=== PATIENT | male | born 1960 | race Caucasian/White ===

== ENCOUNTER 2024-12-25 20:43 | Inpatient (IN) | payer OTHER, SELFPAY ==
[2024-12-25 21:33] VITALS: BP 174/75; PULSE 94; RESP 16; TEMP 36.4; O2SAT 97; BMI 39.6
--- NOTE | 2024-12-26 05:15 | PC.ADMIT ---
Garcia Nguyen, 64years old male with PMH of CAD, CHF, HTN, DM2, CKD, PVD, chronic LLE edema/pain, AUD and bipolar d/o, presented to [facility] via EMS from outside [facility] for evaluation after repeated fall and making SI statements. pt reported he was at an OSH for the past few days, presenting with CP and they took some fluids off my legs and let me go .pt stated he left the hospital at 4pm, met with some friends, drank alcohol, unsure amnt, and had x2 witnessed falls by his friends. pt also reported increased depression as he's recently homeless and kicked out of his sister's house. Pt reported being suicidal with a plan to cut his wrist and had past suicide attempts on OD on his Gabapentin. pt has a number of medical problems related him being diabetic, he has partial amputation of bilateral feet, stumps intact. He's non-complaint with his meds and is now struggling with alcoholism and Bipolar d/o. Pt arrived to [place] [id number] at 20:55 with admitting diagnosis for Unspecified Bipolar d/o and AUD. pt is alert and oriented x4, signed CV. pt is calm and pleasant, cooperative with admission process, displayed a depressed mood and affect is labile. pt reported moderate anxiety and depression, 6/10, denied SI/HI/AVH. pt contracted for safety, pt reports he uses walker and cane at home to get around, due to his partial bilateral amputation, he has a shuffle gait, and was given a walker for safety. pt denied pain, skin check completed, pt with a skin on his right knee from the fall, he has an allyevyn drsg on it. Pt also has old healing wound and scattered scabs of his bilateral foot.VSS unremarkable. Med rec. completed, provider notified.Pt on 5mins for safety check. pt is allergic to Motrin. pt's belongs inventoried/secured. Hospitalist consulted for medical clearance.
[2024-12-26 07:00] LABS: Glucose, Whole Blood 167 mg/dL (60-115)
--- NOTE | 2024-12-26 07:17 | HO.PSYADMNOT ---
HPI Date of Service: 12/26/24 Chief Complaint: SI Sources of Information: patient interviewed and chart reviewed HPI Subjective Notes: Kim Warning, Conditional Voluntary and 3 Day Narrative: As per nursing admission 12/26/24: 64years old male with PMH of CAD, CHF, HTN, DM2, CKD, PVD, chronic LLE edema/pain, AUD and bipolar d/o, presented to [facility] via EMS from outside [facility] for evaluation after repeated fall and making SI statements. pt reported he was at an OSH for the past few days, presenting with CP and they took some fluids off my legs and let me go .pt stated he left the hospital at 4pm, met with some friends, drank alcohol, unsure amnt, and had x2 witnessed falls by his friends. pt also reported increased depression as he's recently homeless and kicked out of his sister's house. Pt reported being suicidal with a plan to cut his wrist and had past suicide attempts on OD on his Gabapentin. pt has a number of medical problems related him being diabetic, he has partial amputation of bilateral feet, stumps intact. He's non-complaint with his meds and is now struggling with alcoholism and Bipolar d/o. Pt arrived to [place] [id number] at 20:55 with admitting diagnosis for Unspecified Bipolar d/o and AUD. pt is alert and oriented x4, signed CV. pt is calm and pleasant, cooperative with admission process, displayed a depressed mood and affect is labile. pt reported moderate anxiety and depression, 6/10, denied SI/HI/AVH. pt contracted for safety, pt reports he uses walker and cane at home to get around, due to his partial bilateral amputation, he has a shuffle gait, and was given a walker for safety. pt denied pain, skin check completed, pt with a skin on his right knee from the fall, he has an allyevyn drsg on it. Pt also has old healing wound and scattered scabs of his bilateral foot.VSS unremarkable. Med rec. completed, provider notified.Pt on 5mins for safety check. pt is allergic to Motrin. pt's belongs inventoried/secured. Hospitalist consulted for medical clearance. Today: With blog writer presents as irritable. Reports he is not depressed or suicidal. Stated he made comments when he was intoxicated and did not mean them. That being said did endorse a recent admission following a gabapentin overdose in October in [place]. Reports he has no interest in psychiatric services or medications as he does not take them consistently . Adamantly denied being depressed, psychosis, sleep disturbance. Regarding alcohol is very vague around the amount that he drinks and frequency too much , whenever I have the money . Reported not going for more than a few days at a time without drinking, but unsure how much each time. He does come across as a little concrete. Stated that he has no history of DTs or withdrawal seizures. Main stressor are living situation has relocated from [place] to [place] in September and stayed with his sister but that lasted less than 1 week and reports it was a legal incident and he has court date on 01/21/2025 for a battery charge and is currently wearing an ankle monitor. Does have some stress as the pin attacher for this is at the skilled nursing he was most recently at in [place]. Reports his main goal is discharge when his 3 day notice expires and gets his ankle monitor requirement taken away, so he can go to [facility] . Did submitted 3 day notice and Kim warning reviewed. Past Psychiatric History: Reported diagnosis of bipolar disorder. That being said no clear episodes of major depressive episode or manic episode. Denies history of psychosis. Also note that patient is very vague hand minimally engaged with history. Transfer paperwork showed amitriptyline, fluoxetine and Depakote. Does not have any providers and reports he does not want any providers upon discharge. Medical Evaluation Reviewed: Hospitalist Jun Pending Transfer paperwork and labs noted BUN and creatinine elevated. BAL 179. Patient does have a well-established history of diabetes with associated toe amputations. Also has a history of renal impairment. [facility] Social History: originally from [place]. Was living in [place] up until September and came back to [place]. Stayed with his sister but this lasted less than 1 week and there was a legal incident and patient has a court date on 01/21/2025 for a related battery charge and also has an ankle monitor as part of his requirements. [employer] grade education. SSDI support. Substance History: Alcohol use disorder Diagnostics Vital Signs (24Hr): Vital Signs - 24 hr 12/25/24 21:33 Temperature 97.5 F Pulse Rate 94 Respiratory Rate 16 Blood Pressure 174/75 H Pulse Oximetry 97 Oxygen Delivery Method Room Air BMI result Body Mass Index 39.6 Labs 12/26/24 08:16 Labs: Laboratory Results - last 48 hr 12/26/24 06:37 POC Glucose 167 H Meds/Allergies Meds Home Medications ?Medication ?Instructions ?Recorded ?Confirmed ?Type amitriptyline 25 mg PO BEDTIME 12/25/24 12/25/24 History aspirin 81 mg PO DIRECTED 12/25/24 12/25/24 History atorvastatin 40 mg PO DAILY 12/25/24 12/25/24 History bumetanide 0.5 mg PO DAILY 12/25/24 12/25/24 History clopidogrel 75 mg PO DAILY 12/25/24 12/25/24 History divalproex 750 mg PO BID 12/25/24 12/25/24 History empagliflozin 10 mg PO DAILY 12/25/24 12/25/24 History fluoxetine 20 mg PO DAILY 12/25/24 12/25/24 History insulin glargine 20 units subcut BEDTIME 12/25/24 12/25/24 History isosorbide mononitrate 30 mg PO DAILY 12/25/24 12/25/24 History Allergies Allergies Allergy/AdvReac Type Severity Reaction Status Date / Time ibuprofen (From Motrin) Allergy Abdominal Verified 12/25/24 21:30 Pain Mental Status Exam Mental Status Exam Narrative: in bed. Hospital clothing. Poor self-care. Vague and guarded, but largely pleasant. Also appeared concrete. Is alert and oriented to place, date and recent circumstances. Denied depression. Denied SI. No HI. No psychosis. Insight and judgment is limited regarding recent circumstances Assessment & Plan Assessment & Plan (1) Mood disorder: Status: Acute Code(s): F39 - Unspecified mood [affective] disorder (2) Alcohol use disorder: Status: Acute Code(s): F10.90 - Alcohol use, unspecified, uncomplicated (3) Diabetes: Status: Acute Code(s): E11.9 - Type 2 diabetes mellitus without complications (4) Renal impairment: Status: Acute Code(s): N28.9 - Disorder of kidney and ureter, unspecified Plan 64-year-old male admitted for evaluation of mood disorder, alcohol use disorder and suicidal statements in the context of psychosocial stressors and alcohol use. Main stressors include being on house, difficulty connecting with healthcare impacting overall medical well-being. There is a report of bipolar disorder, however unclear if patient has established major depressive or manic or hypomanic episodes in the past. No evidence of psychosis. Alcohol use disorder and reports not going for more than a few days at a time without drinking. Denies any history of DTs or seizures. Admit on a voluntary status with 3 day notice and Kim warning discussed. Continue meds as per transfer paperwork including Depakote 750 mg twice daily, Prozac 20 mg daily, amitriptyline 25 mg at bedtime. Also continue medical medications as per transfer paperwork and will follow hospitalist recommendations as part of H and P and direct admission evaluation. Patient educated on: medication risk/benefits and substance abuse Informed Consent: further education needed Reason for continued inpatient stay Substantial Risk for: harm to self and inability to function Statement Statement: I have reviewed the history and physical and performed a pertinent examination on my patient. No changes have occurred unless specified. If the History and Physical was not performed prior to admission, the Hospitalist's service will be consulted for completing the admission physical. Time Spent With Patient Time: Total time managing care of this patient today ____ minutes.
[2024-12-26 08:39] VITALS: BP 152/67; PULSE 72; RESP 16; TEMP 36.9; O2SAT 98
[2024-12-26 08:42] LABS: Hemoglobin A1C 155.6959 umol/L; Total Hemoglobin (HGBA1C) 2192.8534 umol/L
[2024-12-26 09:07] LABS: Alanine Aminotransferase 9 U/L (0-40); Albumin Level 3.2 g/dL (3.5-5.0); Alkaline Phosphatase 95 U/L (39-117); Anion Gap 14 (12-20); Aspartate Amino Transferase 30 U/L (5-37); Blood Urea Nitrogen 25 mg/dL (9-16); Calcium 8.8 mg/dL (8.4-10.2); Carbon Dioxide 29 mmol/L (22-29); Chloride 102 mmol/L (96-108); Cholesterol 152 mg/dL (<200); Creatinine Clr Calc Pharmacy 57.1; Estimated Glomerular Filt Rate 47; HDL Cholesterol 36 mg/dL (>40); Potassium 4.6 mmol/L (3.3-5.1); Sodium 140 mmol/L (135-145); Total Protein 6.5 g/dL (6.5-8.0); Triglycerides 154 mg/dL (<150)
[2024-12-26 09:22] LABS: Free T4 (Free Thyroxine) 0.77 ng/dL (0.71-1.85); Thyroid Stimulating Hormone 2.58 uIU/mL (0.32-4.0)
[2024-12-26 09:36] LABS: Folate 10.1 ng/mL (> or = 4.0); Vitamin B12 443 pg/mL (200-900)
[2024-12-26 09:42] VITALS: BP 152/67
[2024-12-26 11:35] LABS: Glucose, Whole Blood 251 mg/dL (60-115)
--- NOTE | 2024-12-26 15:13 | HO.PM.IMCN ---
History of Present Illness Data of Consult Service Date: 12/26/24 Primary Care Provider: None Physician HPI Reason for consult: Medical admission HPI Pt is a 64-year-old male with a PMH significant for?CAD, PVD, CHF, insulin dependent diabetes, HTN, CKD, chronic lower extremity edema/pain, AUD, and bipolar disorder who is admitted to [facility] for increasing depression and SI. Pt initially presented to [facility] ED from [place] [facility] due to recurrent falls in the community in the setting of AUD. While in the ED pt made SI comments with plan to cut his writst. Medical consult for admission H&P. ?Pt is overall a poor historian. Initially denies any significant PMH though eventually admits he takes insulin and had a couple of heart attacks some time in the past. Denies any acute medical complaints. Pt is perseveratig on his ankle bracelet and his need for a sales representative adding machines otherwise they will arrest me and send me back to [facility] . In regards to his SI comments, pt states he was drunk and just saying things he didn't mean. However, during interview and exam pt states that if he cannot find a sales representative adding machines for his ankle bracelet, he wishes he would just and may have to kill himself. Pt has no acute medical complaints. Review of Systems Review of Systems: Yes all other systems are reviewed and are negative and Unobtainable due to mental condition PMFSH Social History Housing: Homeless Patient Tobacco Use Status: Former Tobacco user Currently Displaying Signs/Symptoms of Drug Intoxication Withdrawal: No Advance Directives: No Advance Directives Information Provided: No Do you have thoughts of harming others: None Do you have a plan to hurt others: No Plan Recently lost weight without trying: Yes How much weight loss: 34pounds or more Nutrition Risks: No Nutritional Risk service: No Sexual orientation: Straight/Heterosexual Meds Allergies Allergy/AdvReac Type Severity Reaction Status Date / Time ibuprofen (From Motrin) Allergy Abdominal Verified 12/25/24 21:30 Pain Active Medications: Current Medications Acetaminophen (Acetaminophen 325 Mg Tablet) 650 mg PO Q6H PRN PRN Reason: Headache/Pain, Scale 1-10 Al Hydroxide/Mg Hydroxide (Magnesium Hydrox/Alum Hydrox 30 Ml Oral.Susp) 30 ml PO Q6H PRN PRN Reason: Heartburn/Nausea Amitriptyline HCl (Amitriptyline Hcl 25 Mg Tablet) 25 mg PO BEDTIME [facility] Aspirin (Aspirin 81 Mg Tab.Chew) 81 mg PO DAILY [facility] Last Admin: 12/26/24 09:41 Dose: 81 mg Atorvastatin Calcium (Atorvastatin Calcium 40 Mg Tablet) 40 mg PO DAILY [facility] Last Admin: 12/26/24 09:42 Dose: 40 mg Bumetanide (Bumetanide 1 Mg Tablet) 0.5 mg PO DAILY [facility] Last Admin: 12/26/24 09:42 Dose: 0.5 mg Clopidogrel Bisulfate (Clopidogrel Bisulfate 75 Mg Tablet) 75 mg PO DAILY [facility] Last Admin: 12/26/24 09:41 Dose: 75 mg Dextrose (Dextrose 50 % 25 Gm/50 Ml Syringe) 25 gm IVPUSH Q15M PRN; Protocol PRN Reason: per Hypoglycemia Standing Ord. Divalproex Sodium (Divalproex Sodium 250 Mg Tablet.Dr) 750 mg PO BID [facility] Last Admin: 12/26/24 09:41 Dose: 750 mg Empagliflozin (Empagliflozin 10 Mg Tablet) 10 mg PO DAILY [facility] Last Admin: 12/26/24 09:42 Dose: 10 mg Fluoxetine HCl (Fluoxetine Hcl 20 Mg Capsule) 20 mg PO DAILY [facility] Last Admin: 12/26/24 09:42 Dose: 20 mg Glucose (Glucose Gel 15 Gm Gel..Gram.) 15 gm PO Q15M PRN; Protocol PRN Reason: per Hypoglycemia Standing Ord. Hydroxyzine HCl (Hydroxyzine Hcl 25 Mg Tablet) 25 mg PO Q6H PRN PRN Reason: mild anxiety Insulin Glargine (Insulin Glargine,Hum.Rec.Anlog 100 Unit/Ml 10 Ml Vial) 20 unit SUBCUT BEDTIME [facility] Insulin Human Lispro (Insulin Lispro 100 Unit/Ml 3 Ml Vial) 0 unit SUBCUT QIDACHS [facility]; Protocol Last Admin: 12/26/24 11:49 Dose: 6 unit Isosorbide Mononitrate (Isosorbide Mononitrate 30 Mg Tab.Er.24h) 30 mg PO DAILY [facility] Last Admin: 12/26/24 09:42 Dose: 30 mg Lorazepam (Lorazepam 1 Mg Tablet) 1 mg PO Q2H PRN PRN Reason: CIWA 8-11 Lorazepam (Lorazepam 1 Mg Tablet) 2 mg PO Q2H PRN PRN Reason: CIWA 12-15 Magnesium Hydroxide (Milk Of Magnesia 30 Ml Oral.Susp) 30 ml PO DAILY PRN PRN Reason: Constipation Nicotine (Nicotine 21 Mg Patch.Td24) 21 mg TRANSDERMA DAILY PRN PRN Reason: nicotine craving Nicotine Polacrilex (Nicotine Polacrilex 2 Mg Gum) 2 mg BUCCAL Q2H PRN PRN Reason: Nicotine Cravings Olanzapine (Olanzapine 5 Mg Tablet) 5 mg PO BID PRN PRN Reason: agitation Thiamine HCl (Thiamine Hcl 100 Mg Tablet) 100 mg PO DAILY [facility] Last Admin: 12/26/24 09:42 Dose: 100 mg Trazodone HCl (Trazodone Hcl 50 Mg Tablet) 50 mg PO BEDTIME MRX1 PRN PRN Reason: Insomnia Home Medications ?Medication ?Instructions ?Recorded ?Confirmed ?Last Taken ?Type amitriptyline 25 mg PO BEDTIME 12/25/24 12/25/24 Unknown History aspirin 81 mg PO DIRECTED 12/25/24 12/25/24 Unknown History atorvastatin 40 mg PO DAILY 12/25/24 12/25/24 Unknown History bumetanide 0.5 mg PO DAILY 12/25/24 12/25/24 Unknown History clopidogrel 75 mg PO DAILY 12/25/24 12/25/24 Unknown History divalproex 750 mg PO BID 12/25/24 12/25/24 Unknown History empagliflozin 10 mg PO DAILY 12/25/24 12/25/24 Unknown History fluoxetine 20 mg PO DAILY 12/25/24 12/25/24 Unknown History insulin glargine 20 units subcut BEDTIME 12/25/24 12/25/24 Unknown History isosorbide mononitrate 30 mg PO DAILY 12/25/24 12/25/24 Unknown History Physical Exam Vital Signs and Narrative: Vital Signs: Last Vital Signs Temp 98.5 F 12/26/24 08:39 Pulse 72 12/26/24 08:39 Resp 16 12/26/24 08:39 BP 152/67 H 12/26/24 09:42 Pulse Ox 98 12/26/24 08:39 O2 Del Method Room Air 12/26/24 08:39 BMI result Body Mass Index 39.6 General: AOx3, no acute distress Resp: CTA bilaterally CVS: S1, S2, RRR GI: +BS, NT, no distention Skin: Warm, dry Neuro: Cranial nerves II-XII grossly intact bilaterally. Motor grossly intact bilaterally Extremities:Chronic 1+ lower extremity pitting edema; bilateral TMAs; superficial 2cm abrasion on left wrist where he attempted to cut self with juice box Psych: Appropriate affect Results Labs 12/26/24 08:16 Labs: Laboratory Results - last 24 hr 12/26/24 12/26/24 12/26/24 06:37 08:16 11:31 Anion Gap 14 Estim Creat Clear Calc 57.1 Estimated GFR 47 POC Glucose 167 H 251 H Random Glucose 243 H Estimat Average Glucose 200 Hemoglobin A1c % 8.6 H Calcium 8.8 Total Bilirubin 0.3 AST 30 ALT 9 Alkaline Phosphatase 95 Total Protein 6.5 Albumin 3.2 L Triglycerides 154 H Cholesterol 152 LDL Cholesterol, Calc 86 HDL Cholesterol 36 L Vitamin B12 443 Folate 10.1 TSH 2.58 Free T4 0.77 Assessment and Plan (1) Medical clearance for psychiatric admission: Status: Acute Plan Pt is a 64-year-old male with a PMH significant for?CAD, PVD, CHF, insulin dependent diabetes, HTN, CKD, chronic lower extremity edema/pain, AUD, and bipolar disorder who is admitted to [facility] for increasing depression and SI. Pt initially presented to [facility] ED from [place] [facility] due to recurrent falls in the community in the setting of AUD. While in the ED pt made SI comments with plan to cut his wrist. Medical consult for admission H&P. ? Mood disorder Plan as per psychiatry CAD/PVD/HLD Continue Plavix, aspirin, and statin Continue isosorbide mononitrate Chronic lower extremity edema Continue bumetanide Insulin-dependent type 2 diabetes Continue Lantus Sliding scale insulin Encouraged diabetic diet and diabetic snacking HTN Overall well controlled Currently not on home meds Thank you for allowing us to participate in the care of this pt. Currently appears stable and has no acute medical complaints. Will sign off for now.
[2024-12-26 16:26] LABS: Glucose, Whole Blood 166 mg/dL (60-115)
[2024-12-26 20:00] VITALS: BP 118/55; RESP 17; TEMP 36.6; O2SAT 97
[2024-12-26 20:25] LABS: Glucose, Whole Blood 190 mg/dL (60-115)
[2024-12-26] MEDS: Insulin Glargine,Hum.rec.anlog 100 UNIT/ML 10 ML VIAL 20 UNIT SUBCUT (21:12)
[2024-12-27 07:06] LABS: Glucose, Whole Blood 143 mg/dL (60-115)
--- NOTE | 2024-12-27 07:56 | P.PNPSI_ITS ---
Subjective Subjective Date of Service: 12/27/24 Reason For Visit: SI Subjective Notes: Kim Warning and 3 Day Interim History: Met with patient. Discussed with nursing. Overall reports things are going okay follow-up mental health perspective. Remains eager for discharge with three-day notice in place. Reports he is not depressed or suicidal. We told his perspective of saying things while intoxicated. Focused on getting back to his residential and ensuring that his ankle bracelet monitor discharged. No med concerns. Sleep energy and appetite fair. Doing art work/coloring in as a distraction Medication Compliance: Yes Side effects from medications: No Attending Groups: Intermittent Review of Systems Acute medical concerns: No Review of Systems Review of Systems in milieu. Wearing hospital clothing. Fair self-care. Hubbard but pleasant. Denies depression SI HI or psychosis. Doing artwork and coloring in. Insight and judgment improving Diagnostics Vital Signs (24Hr): Vital Signs - 24 hr 12/26/24 08:39 12/26/24 09:42 12/26/24 09:42 Temperature 98.5 F Pulse Rate 72 Respiratory Rate 16 Blood Pressure 152/67 H 152/67 H 152/67 H Pulse Oximetry 98 Oxygen Delivery Method Room Air 12/26/24 20:00 Temperature 98 F Pulse Rate Respiratory Rate 17 Blood Pressure 118/55 L Pulse Oximetry 97 Oxygen Delivery Method Room Air BMI result Body Mass Index 39.6 Labs 12/26/24 08:16 Labs: Laboratory Results - last 48 hr 12/26/24 12/26/24 12/26/24 06:37 08:16 11:31 Sodium 140 Potassium 4.6 Chloride 102 Carbon Dioxide 29 Anion Gap 14 BUN 25 H Creatinine 1.51 H Estim Creat Clear Calc 57.1 Estimated GFR 47 POC Glucose 167 H 251 H Random Glucose 243 H Estimat Average Glucose 200 Hemoglobin A1c % 8.6 H Calcium 8.8 Total Bilirubin 0.3 AST 30 ALT 9 Alkaline Phosphatase 95 Total Protein 6.5 Albumin 3.2 L Triglycerides 154 H Cholesterol 152 LDL Cholesterol, Calc 86 HDL Cholesterol 36 L Vitamin B12 443 Folate 10.1 TSH 2.58 Free T4 0.77 12/26/24 12/26/24 12/27/24 16:22 20:21 06:59 Sodium Potassium Chloride Carbon Dioxide Anion Gap BUN Creatinine Estim Creat Clear Calc Estimated GFR POC Glucose 166 H 190 H 143 H Random Glucose Estimat Average Glucose Hemoglobin A1c % Calcium Total Bilirubin AST ALT Alkaline Phosphatase Total Protein Albumin Triglycerides Cholesterol LDL Cholesterol, Calc HDL Cholesterol Vitamin B12 Folate TSH Free T4 Medications Medications Current Medications Acetaminophen (Acetaminophen 325 Mg Tablet) 650 mg PO Q6H PRN PRN Reason: Headache/Pain, Scale 1-10 Last Admin: 12/27/24 04:22 Dose: 650 mg Al Hydroxide/Mg Hydroxide (Magnesium Hydrox/Alum Hydrox 30 Ml Oral.Susp) 30 ml PO Q6H PRN PRN Reason: Heartburn/Nausea Amitriptyline HCl (Amitriptyline Hcl 25 Mg Tablet) 25 mg PO BEDTIME [facility] Last Admin: 12/26/24 21:14 Dose: 25 mg Aspirin (Aspirin 81 Mg Tab.Chew) 81 mg PO DAILY [facility] Last Admin: 12/26/24 09:41 Dose: 81 mg Atorvastatin Calcium (Atorvastatin Calcium 40 Mg Tablet) 40 mg PO DAILY [facility] Last Admin: 12/26/24 09:42 Dose: 40 mg Bumetanide (Bumetanide 1 Mg Tablet) 0.5 mg PO DAILY [facility] Last Admin: 12/26/24 09:42 Dose: 0.5 mg Clopidogrel Bisulfate (Clopidogrel Bisulfate 75 Mg Tablet) 75 mg PO DAILY [facility] Last Admin: 12/26/24 09:41 Dose: 75 mg Dextrose (Dextrose 50 % 25 Gm/50 Ml Syringe) 25 gm IVPUSH Q15M PRN; Protocol PRN Reason: per Hypoglycemia Standing Ord. Divalproex Sodium (Divalproex Sodium 250 Mg Tablet.Dr) 750 mg PO BID [facility] Last Admin: 12/26/24 21:13 Dose: 750 mg Empagliflozin (Empagliflozin 10 Mg Tablet) 10 mg PO DAILY [facility] Last Admin: 12/26/24 09:42 Dose: 10 mg Fluoxetine HCl (Fluoxetine Hcl 20 Mg Capsule) 20 mg PO DAILY [facility] Last Admin: 12/26/24 09:42 Dose: 20 mg Glucose (Glucose Gel 15 Gm Gel..Gram.) 15 gm PO Q15M PRN; Protocol PRN Reason: per Hypoglycemia Standing Ord. Hydroxyzine HCl (Hydroxyzine Hcl 25 Mg Tablet) 25 mg PO Q6H PRN PRN Reason: mild anxiety Last Admin: 12/26/24 22:24 Dose: 25 mg Insulin Glargine (Insulin Glargine,Hum.Rec.Anlog 100 Unit/Ml 10 Ml Vial) 20 unit SUBCUT BEDTIME [facility] Last Admin: 12/26/24 21:12 Dose: 20 unit Insulin Human Lispro (Insulin Lispro 100 Unit/Ml 3 Ml Vial) 0 unit SUBCUT QIDACHS [facility]; Protocol Last Admin: 12/27/24 07:32 Dose: Not Given Isosorbide Mononitrate (Isosorbide Mononitrate 30 Mg Tab.Er.24h) 30 mg PO DAILY [facility] Last Admin: 12/26/24 09:42 Dose: 30 mg Lorazepam (Lorazepam 1 Mg Tablet) 1 mg PO Q2H PRN PRN Reason: CIWA 8-11 Last Admin: 12/27/24 04:25 Dose: 1 mg Lorazepam (Lorazepam 1 Mg Tablet) 2 mg PO Q2H PRN PRN Reason: CIWA 12-15 Magnesium Hydroxide (Milk Of Magnesia 30 Ml Oral.Susp) 30 ml PO DAILY PRN PRN Reason: Constipation Nicotine (Nicotine 21 Mg Patch.Td24) 21 mg TRANSDERMA DAILY PRN PRN Reason: nicotine craving Nicotine Polacrilex (Nicotine Polacrilex 2 Mg Gum) 2 mg BUCCAL Q2H PRN PRN Reason: Nicotine Cravings Olanzapine (Olanzapine 5 Mg Tablet) 5 mg PO BID PRN PRN Reason: agitation Last Admin: 12/27/24 04:24 Dose: 5 mg Thiamine HCl (Thiamine Hcl 100 Mg Tablet) 100 mg PO DAILY [facility] Last Admin: 12/26/24 09:42 Dose: 100 mg Trazodone HCl (Trazodone Hcl 50 Mg Tablet) 50 mg PO BEDTIME MRX1 PRN PRN Reason: Insomnia Allergies Allergies Allergy/AdvReac Type Severity Reaction Status Date / Time ibuprofen (From Motrin) Allergy Abdominal Verified 12/25/24 21:30 Pain Assessment & Plan Assessment & Plan (1) Mood disorder: Status: Acute Code(s): F39 - Unspecified mood [affective] disorder (2) Alcohol use disorder: Status: Acute Code(s): F10.90 - Alcohol use, unspecified, uncomplicated (3) Diabetes: Status: Acute Code(s): E11.9 - Type 2 diabetes mellitus without complications (4) Renal impairment: Status: Acute Code(s): N28.9 - Disorder of kidney and ureter, unspecified Plan 64-year-old male admitted for evaluation of mood disorder, alcohol use disorder and suicidal statements in the context of psychosocial stressors and alcohol use. Main stressors include being on house, difficulty connecting with healthcare impacting overall medical well-being. There is a report of bipolar disorder, however unclear if patient has established major depressive or manic or hypomanic episodes in the past. No evidence of psychosis. Alcohol use disorder and reports not going for more than a few days at a time without drinking. Denies any history of DTs or seizures. Admit on a voluntary status with 3 day notice and Kim warning discussed. Continue meds as per transfer paperwork including Depakote 750 mg twice daily, Prozac 20 mg daily, amitriptyline 25 mg at bedtime. Also continue medical medications as per transfer paperwork and will follow hospitalist recommendations as part of H and P and direct admission evaluation. 12/27: no changes Reason for continued inpatient stay Substantial Risk for: harm to self and rapid decompensation Time Spent With Patient Time: Total time managing care of this patient today ____ minutes.
[2024-12-27 08:00] VITALS: BP 143/77; PULSE 90; RESP 18; TEMP 36.6; O2SAT 97
[2024-12-27 11:19] LABS: Glucose, Whole Blood 161 mg/dL (60-115)
[2024-12-27 19:41] VITALS: BP 118/58; PULSE 63; RESP 18; TEMP 36.1; O2SAT 99
[2024-12-27 19:51] LABS: Glucose, Whole Blood 167 mg/dL (60-115)
[2024-12-27] MEDS: Insulin Glargine,Hum.rec.anlog 100 UNIT/ML 10 ML VIAL 20 UNIT SUBCUT (20:24)
[2024-12-28 08:00] VITALS: BP 136/62; PULSE 76; RESP 16; TEMP 36.4; O2SAT 98
--- NOTE | 2024-12-28 09:08 | HO.PSYCHPN ---
Subjective Subjective Date of Service: 12/28/24 Reason For Visit: SI Subjective Notes: Section 12B Interim History: Pt slept through the night. he has been mostly in bed. He is guarded when approach initilly asking this content writer and SW to come back another time because he was tired. He later agreed to talk with us, reports this was a mistake that he made comments when he was under the influence of alcohol. He adamantly denies SI/HI. No signs of VH/AH. 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 He states he needs to go back to [place] where he has a pending legal matter. Reviewed labs- A1c 8.6%, CMP with no electrolyte abnormalities, BUN 25, Cr 1.51, LFTs wnl. low albumin 3.2. VS stable. He is currently on depakote- ordered depakote levels for 12/29 in am and ammonia. Diagnostics Vital Signs (24Hr): Vital Signs - 24 hr 12/27/24 19:41 Temperature 96.9 F Pulse Rate 63 Respiratory Rate 18 Blood Pressure 118/58 L Pulse Oximetry 99 Oxygen Delivery Method Room Air BMI result Body Mass Index 39.6 Labs 12/26/24 08:16 Labs: Laboratory Results - last 48 hr 12/26/24 12/26/24 12/26/24 08:16 11:31 16:22 POC Glucose 251 H 166 H Vitamin B12 443 Folate 10.1 TSH 2.58 Free T4 0.77 12/26/24 12/27/24 12/27/24 20:21 06:59 11:15 POC Glucose 190 H 143 H 161 H Vitamin B12 Folate TSH Free T4 12/27/24 19:46 POC Glucose 167 H Vitamin B12 Folate TSH Free T4 Medications Medications Current Medications Acetaminophen (Acetaminophen 325 Mg Tablet) 650 mg PO Q6H PRN PRN Reason: Headache/Pain, Scale 1-10 Last Admin: 12/27/24 17:47 Dose: 650 mg Al Hydroxide/Mg Hydroxide (Magnesium Hydrox/Alum Hydrox 30 Ml Oral.Susp) 30 ml PO Q6H PRN PRN Reason: Heartburn/Nausea Amitriptyline HCl (Amitriptyline Hcl 25 Mg Tablet) 25 mg PO BEDTIME [facility] Last Admin: 12/27/24 20:18 Dose: 25 mg Aspirin (Aspirin 81 Mg Tab.Chew) 81 mg PO DAILY [facility] Last Admin: 12/28/24 08:44 Dose: 81 mg Atorvastatin Calcium (Atorvastatin Calcium 40 Mg Tablet) 40 mg PO DAILY [facility] Last Admin: 12/28/24 08:44 Dose: 40 mg Bumetanide (Bumetanide 1 Mg Tablet) 0.5 mg PO DAILY [facility] Last Admin: 12/28/24 08:44 Dose: 0.5 mg Clopidogrel Bisulfate (Clopidogrel Bisulfate 75 Mg Tablet) 75 mg PO DAILY [facility] Last Admin: 12/28/24 08:44 Dose: 75 mg Dextrose (Dextrose 50 % 25 Gm/50 Ml Syringe) 25 gm IVPUSH Q15M PRN; Protocol PRN Reason: per Hypoglycemia Standing Ord. Divalproex Sodium (Divalproex Sodium 250 Mg Tablet.Dr) 750 mg PO BID [facility] Last Admin: 12/28/24 08:43 Dose: 750 mg Empagliflozin (Empagliflozin 10 Mg Tablet) 10 mg PO DAILY [facility] Last Admin: 12/28/24 08:44 Dose: 10 mg Fluoxetine HCl (Fluoxetine Hcl 20 Mg Capsule) 20 mg PO DAILY [facility] Last Admin: 12/28/24 08:44 Dose: 20 mg Glucose (Glucose Gel 15 Gm Gel..Gram.) 15 gm PO Q15M PRN; Protocol PRN Reason: per Hypoglycemia Standing Ord. Hydroxyzine HCl (Hydroxyzine Hcl 25 Mg Tablet) 25 mg PO Q6H PRN PRN Reason: mild anxiety Last Admin: 12/26/24 22:24 Dose: 25 mg Insulin Glargine (Insulin Glargine,Hum.Rec.Anlog 100 Unit/Ml 10 Ml Vial) 20 unit SUBCUT BEDTIME [facility] Last Admin: 12/27/24 20:24 Dose: 20 unit Insulin Human Lispro (Insulin Lispro 100 Unit/Ml 3 Ml Vial) 0 unit SUBCUT QIDACHS [facility]; Protocol Last Admin: 12/28/24 08:43 Dose: Not Given Isosorbide Mononitrate (Isosorbide Mononitrate 30 Mg Tab.Er.24h) 30 mg PO DAILY [facility] Last Admin: 12/28/24 08:44 Dose: 30 mg Lorazepam (Lorazepam 1 Mg Tablet) 1 mg PO Q2H PRN PRN Reason: CIWA 8-11 Last Admin: 12/27/24 04:25 Dose: 1 mg Lorazepam (Lorazepam 1 Mg Tablet) 2 mg PO Q2H PRN PRN Reason: CIWA 12-15 Magnesium Hydroxide (Milk Of Magnesia 30 Ml Oral.Susp) 30 ml PO DAILY PRN PRN Reason: Constipation Nicotine (Nicotine 21 Mg Patch.Td24) 21 mg TRANSDERMA DAILY PRN PRN Reason: nicotine craving Nicotine Polacrilex (Nicotine Polacrilex 2 Mg Gum) 2 mg BUCCAL Q2H PRN PRN Reason: Nicotine Cravings Olanzapine (Olanzapine 5 Mg Tablet) 5 mg PO BID PRN PRN Reason: agitation Last Admin: 12/27/24 04:24 Dose: 5 mg Thiamine HCl (Thiamine Hcl 100 Mg Tablet) 100 mg PO DAILY [facility] Last Admin: 12/28/24 08:44 Dose: 100 mg Trazodone HCl (Trazodone Hcl 50 Mg Tablet) 50 mg PO BEDTIME MRX1 PRN PRN Reason: Insomnia Allergies Allergies Allergy/AdvReac Type Severity Reaction Status Date / Time ibuprofen (From Motrin) Allergy Abdominal Verified 12/25/24 21:30 Pain Assessment & Plan Assessment & Plan (1) Mood disorder: Status: Acute Code(s): F39 - Unspecified mood [affective] disorder (2) Alcohol use disorder: Status: Acute Code(s): F10.90 - Alcohol use, unspecified, uncomplicated (3) Diabetes: Status: Acute Code(s): E11.9 - Type 2 diabetes mellitus without complications (4) Renal impairment: Status: Acute Code(s): N28.9 - Disorder of kidney and ureter, unspecified Plan 64-year-old male admitted for evaluation of mood disorder, alcohol use disorder and suicidal statements in the context of psychosocial stressors and alcohol use. Main stressors include being on house, difficulty connecting with healthcare impacting overall medical well-being. There is a report of bipolar disorder, however unclear if patient has established major depressive or manic or hypomanic episodes in the past. No evidence of psychosis. Alcohol use disorder and reports not going for more than a few days at a time without drinking. Denies any history of DTs or seizures. Admit on a voluntary status with 3 day notice and Kim warning discussed. Continue meds as per transfer paperwork including Depakote 750 mg twice daily, Prozac 20 mg daily, amitriptyline 25 mg at bedtime. Also continue medical medications as per transfer paperwork and will follow hospitalist recommendations as part of H and P and direct admission evaluation. 12/27: no changes 12/28 continue current medications including prozac, depakote. Reviewed labs- A1c 8.6%, CMP with no electrolyte abnormalities, BUN 25, Cr 1.51, LFTs wnl. low albumin 3.2. VS stable. He is currently on depakote- ordered depakote levels for 12/29 in am and ammonia. Pt continues to denied SI/HI. wants to leave as soon as possible. explained we have to coordinate transportation. Reason for continued inpatient stay Substantial Risk for: harm to self and rapid decompensation Time Spent With Patient Time: Total time managing care of this patient today ____ minutes.
[2024-12-28 16:15] LABS: Glucose, Whole Blood 153 mg/dL (60-115)
[2024-12-28 20:00] VITALS: BP 132/64; PULSE 97; RESP 18; TEMP 36.9; O2SAT 98
[2024-12-28] MEDS: Insulin Glargine,Hum.rec.anlog 100 UNIT/ML 10 ML VIAL 20 UNIT SUBCUT (20:08)
[2024-12-28 20:22] LABS: Glucose, Whole Blood 254 mg/dL (60-115)
--- NOTE | 2024-12-29 06:34 | PC.NURSE ---
Pt declined POC despite being educated by TW.
--- NOTE | 2024-12-29 08:54 | HO.PSYCHPN ---
Subjective Subjective Date of Service: 12/29/24 Reason For Visit: SI Subjective Notes: Section 12B Interim History: Pt mostly in bed. He reports he does not want to be here. He continues to denied suicidal ideation. He also continues to report that he made suicidal statements when intoxicated. He is taking his medications. He wants to discharge as soon as possible. No SI/HI. Mostly in bed, minimally cooperative even with discharge planning. Medication Compliance: Yes Mental Status Exam Mental Status Exam Narrative: Appearance: wearing hospital gown, in bed, fair hygiene, in NAD Behavior: guarded Psychomotor: no agitation or retardation noted Speech: clear, normal rate/rhythm/volume, spontaneous TP: linear TC: wanting to leave Mood: fine Affect: irritable SI: denies HI: denies VH/AH: none Delusions: none Insight/judgment: poor x 2. Memory/cog: alert, oriented x 3. Diagnostics Vital Signs (24Hr): Vital Signs - 24 hr 12/28/24 20:00 Temperature 98.5 F Pulse Rate 97 Respiratory Rate 18 Blood Pressure 132/64 Pulse Oximetry 98 BMI result Body Mass Index 39.6 Labs 12/26/24 08:16 Labs: Laboratory Results - last 48 hr 12/27/24 12/27/24 12/28/24 11:15 19:46 16:07 POC Glucose 161 H 167 H 153 H 12/28/24 20:15 POC Glucose 254 H Medications Medications Current Medications Acetaminophen (Acetaminophen 325 Mg Tablet) 650 mg PO Q6H PRN PRN Reason: Headache/Pain, Scale 1-10 Last Admin: 12/27/24 17:47 Dose: 650 mg Al Hydroxide/Mg Hydroxide (Magnesium Hydrox/Alum Hydrox 30 Ml Oral.Susp) 30 ml PO Q6H PRN PRN Reason: Heartburn/Nausea Amitriptyline HCl (Amitriptyline Hcl 25 Mg Tablet) 25 mg PO BEDTIME [facility] Last Admin: 12/28/24 20:07 Dose: 25 mg Aspirin (Aspirin 81 Mg Tab.Chew) 81 mg PO DAILY [facility] Last Admin: 12/29/24 08:22 Dose: 81 mg Atorvastatin Calcium (Atorvastatin Calcium 40 Mg Tablet) 40 mg PO DAILY [facility] Last Admin: 12/29/24 08:23 Dose: 40 mg Bumetanide (Bumetanide 1 Mg Tablet) 0.5 mg PO DAILY [facility] Last Admin: 12/29/24 08:24 Dose: Not Given Clopidogrel Bisulfate (Clopidogrel Bisulfate 75 Mg Tablet) 75 mg PO DAILY [facility] Last Admin: 12/29/24 08:23 Dose: 75 mg Dextrose (Dextrose 50 % 25 Gm/50 Ml Syringe) 25 gm IVPUSH Q15M PRN; Protocol PRN Reason: per Hypoglycemia Standing Ord. Divalproex Sodium (Divalproex Sodium 250 Mg Tablet.Dr) 750 mg PO BID [facility] Last Admin: 12/29/24 08:20 Dose: 750 mg Empagliflozin (Empagliflozin 10 Mg Tablet) 10 mg PO DAILY [facility] Last Admin: 12/29/24 08:23 Dose: 10 mg Fluoxetine HCl (Fluoxetine Hcl 20 Mg Capsule) 20 mg PO DAILY [facility] Last Admin: 12/29/24 08:23 Dose: 20 mg Glucose (Glucose Gel 15 Gm Gel..Gram.) 15 gm PO Q15M PRN; Protocol PRN Reason: per Hypoglycemia Standing Ord. Hydroxyzine HCl (Hydroxyzine Hcl 25 Mg Tablet) 25 mg PO Q6H PRN PRN Reason: mild anxiety Last Admin: 12/26/24 22:24 Dose: 25 mg Insulin Glargine (Insulin Glargine,Hum.Rec.Anlog 100 Unit/Ml 10 Ml Vial) 20 unit SUBCUT BEDTIME [facility] Last Admin: 12/28/24 20:08 Dose: 20 unit Insulin Human Lispro (Insulin Lispro 100 Unit/Ml 3 Ml Vial) 0 unit SUBCUT QIDACHS [facility]; Protocol Last Admin: 12/29/24 08:22 Dose: Not Given Isosorbide Mononitrate (Isosorbide Mononitrate 30 Mg Tab.Er.24h) 30 mg PO DAILY [facility] Last Admin: 12/29/24 08:25 Dose: Not Given Loperamide HCl (Loperamide Hcl 2 Mg Capsule) 2 mg PO Q4H PRN PRN Reason: diarrhea Lorazepam (Lorazepam 1 Mg Tablet) 1 mg PO Q2H PRN PRN Reason: CIWA 8-11 Last Admin: 12/27/24 04:25 Dose: 1 mg Lorazepam (Lorazepam 1 Mg Tablet) 2 mg PO Q2H PRN PRN Reason: CIWA 12-15 Magnesium Hydroxide (Milk Of Magnesia 30 Ml Oral.Susp) 30 ml PO DAILY PRN PRN Reason: Constipation Nicotine (Nicotine 21 Mg Patch.Td24) 21 mg TRANSDERMA DAILY PRN PRN Reason: nicotine craving Nicotine Polacrilex (Nicotine Polacrilex 2 Mg Gum) 2 mg BUCCAL Q2H PRN PRN Reason: Nicotine Cravings Olanzapine (Olanzapine 5 Mg Tablet) 5 mg PO BID PRN PRN Reason: agitation Last Admin: 12/27/24 04:24 Dose: 5 mg Thiamine HCl (Thiamine Hcl 100 Mg Tablet) 100 mg PO DAILY [facility] Last Admin: 12/29/24 08:23 Dose: 100 mg Trazodone HCl (Trazodone Hcl 50 Mg Tablet) 50 mg PO BEDTIME MRX1 PRN PRN Reason: Insomnia Allergies Allergies Allergy/AdvReac Type Severity Reaction Status Date / Time ibuprofen (From Motrin) Allergy Abdominal Verified 12/25/24 21:30 Pain Assessment & Plan Assessment & Plan (1) Mood disorder: Status: Acute Code(s): F39 - Unspecified mood [affective] disorder (2) Alcohol use disorder: Status: Acute Code(s): F10.90 - Alcohol use, unspecified, uncomplicated (3) Diabetes: Status: Acute Code(s): E11.9 - Type 2 diabetes mellitus without complications (4) Renal impairment: Status: Acute Code(s): N28.9 - Disorder of kidney and ureter, unspecified Plan 64-year-old male admitted for evaluation of mood disorder, alcohol use disorder and suicidal statements in the context of psychosocial stressors and alcohol use. Main stressors include being on house, difficulty connecting with healthcare impacting overall medical well-being. There is a report of bipolar disorder, however unclear if patient has established major depressive or manic or hypomanic episodes in the past. No evidence of psychosis. Alcohol use disorder and reports not going for more than a few days at a time without drinking. Denies any history of DTs or seizures. Admit on a voluntary status with 3 day notice and Kim warning discussed. Continue meds as per transfer paperwork including Depakote 750 mg twice daily, Prozac 20 mg daily, amitriptyline 25 mg at bedtime. Also continue medical medications as per transfer paperwork and will follow hospitalist recommendations as part of H and P and direct admission evaluation. 12/27: no changes 12/28 continue current medications including prozac, depakote. Reviewed labs- A1c 8.6%, CMP with no electrolyte abnormalities, BUN 25, Cr 1.51, LFTs wnl. low albumin 3.2. VS stable. He is currently on depakote- ordered depakote levels for 12/29 in am and ammonia. Pt continues to denied SI/HI. wants to leave as soon as possible. explained we have to coordinate transportation. 12/29 continue tx. plan to d/c tomorrow. Reason for continued inpatient stay Substantial Risk for: inability to function Time Spent With Patient Time: Total time managing care of this patient today ____ minutes.
[2024-12-29 20:00] VITALS: RESP 18
--- NOTE | 2024-12-29 21:16 | PC.NURSE ---
Pt declined VS, POC and all scheduled HS meds, Galina Al ( ROAD MANAGER) notified.
--- NOTE | 2024-12-30 11:38 | PC.NURSE ---
Pt declined morning VS and POC and states I don't need anything from you. I just need to go home that's it. Pt declined POC at lunch and stated You need to stop this, I don't even do this at home. RN educated pt on the importance of getting his blood sugar checked. Pt verbalized understanding but continued to decline.
--- NOTE | 2024-12-30 15:20 | PM.PSYDC ---
DS: Providers Provider Date of Service: 12/30/24 Date of admission: 12/25/24 20:43 Date of discharge: 12/30/24 Primary care physician: None Physician Consults: 12/25/24 21:36 Consult to Hospitalist Routine Comment: Consulting Provider: [facility] Reason For Exam: Admission physical DS: Diagnosis Discharge Diagnosis (1) Mood disorder: Status: Acute (2) Alcohol use disorder: Status: Acute (3) Diabetes: Status: Acute (4) Renal impairment: Status: Acute DS: Medications Discharge Medications Home Medications: Home Medications ?Medication ?Instructions ?Recorded ?Confirmed amitriptyline 25 mg PO BEDTIME 12/25/24 12/25/24 aspirin 81 mg PO DIRECTED 12/25/24 12/25/24 atorvastatin 40 mg PO DAILY 12/25/24 12/25/24 bumetanide 0.5 mg PO DAILY 12/25/24 12/25/24 clopidogrel 75 mg PO DAILY 12/25/24 12/25/24 divalproex 750 mg PO BID 12/25/24 12/25/24 empagliflozin 10 mg PO DAILY 12/25/24 12/25/24 fluoxetine 20 mg PO DAILY 12/25/24 12/25/24 insulin glargine 20 units subcut BEDTIME 12/25/24 12/25/24 isosorbide mononitrate 30 mg PO DAILY 12/25/24 12/25/24 Data Data Completed and Pending Completed studies during hospitalization [Text1]: 12/26/24 12/26/24 12/26/24 06:37 08:16 11:31 Sodium 140 Potassium 4.6 Chloride 102 Carbon Dioxide 29 Anion Gap 14 BUN 25 H Creatinine 1.51 H Estim Creat Clear Calc 57.1 Estimated GFR 47 POC Glucose 167 H 251 H Random Glucose 243 H Estimat Average Glucose 200 Hemoglobin A1c % 8.6 H Calcium 8.8 Total Bilirubin 0.3 AST 30 ALT 9 Alkaline Phosphatase 95 Total Protein 6.5 Albumin 3.2 L Triglycerides 154 H Cholesterol 152 LDL Cholesterol, Calc 86 HDL Cholesterol 36 L Vitamin B12 443 Folate 10.1 TSH 2.58 Free T4 0.77 12/26/24 12/26/24 12/27/24 16:22 20:21 06:59 Sodium Potassium Chloride Carbon Dioxide Anion Gap BUN Creatinine Estim Creat Clear Calc Estimated GFR POC Glucose 166 H 190 H 143 H Random Glucose Estimat Average Glucose Hemoglobin A1c % Calcium Total Bilirubin AST ALT Alkaline Phosphatase Total Protein Albumin Triglycerides Cholesterol LDL Cholesterol, Calc HDL Cholesterol Vitamin B12 Folate TSH Free T4 12/27/24 12/27/24 12/28/24 11:15 19:46 16:07 Sodium Potassium Chloride Carbon Dioxide Anion Gap BUN Creatinine Estim Creat Clear Calc Estimated GFR POC Glucose 161 H 167 H 153 H Random Glucose Estimat Average Glucose Hemoglobin A1c % Calcium Total Bilirubin AST ALT Alkaline Phosphatase Total Protein Albumin Triglycerides Cholesterol LDL Cholesterol, Calc HDL Cholesterol Vitamin B12 Folate TSH Free T4 12/28/24 20:15 Sodium Potassium Chloride Carbon Dioxide Anion Gap BUN Creatinine Estim Creat Clear Calc Estimated GFR POC Glucose 254 H Random Glucose Estimat Average Glucose Hemoglobin A1c % Calcium Total Bilirubin AST ALT Alkaline Phosphatase Total Protein Albumin Triglycerides Cholesterol LDL Cholesterol, Calc HDL Cholesterol Vitamin B12 Folate TSH Free T4 DS: Summary Hospital Course Hospital Course: 64years old male with PMH of CAD, CHF, HTN, DM2, CKD, PVD, chronic LLE edema/pain, AUD and bipolar d/o, presented to [facility] via EMS from outside [facility] for evaluation after repeated fall and making SI statements. pt reported he was at an OSH for the past few days, presenting with CP and they took some fluids off my legs and let me go .pt stated he left the hospital at 4pm, met with some friends, drank alcohol, unsure amnt, and had x2 witnessed falls by his friends. pt also reported increased depression as he's recently homeless and kicked out of his sister's house. Pt reported being suicidal with a plan to cut his wrist and had past suicide attempts on OD on his Gabapentin. pt has a number of medical problems related him being diabetic, he has partial amputation of bilateral feet, stumps intact. He's non-complaint with his meds and is now struggling with alcoholism and Bipolar d/o. Pt arrived to [place] [id number] at 20:55 with admitting diagnosis for Unspecified Bipolar d/o and AUD. pt is alert and oriented x4, signed CV. pt is calm and pleasant, cooperative with admission process, displayed a depressed mood and affect is labile. pt reported moderate anxiety and depression, 6/10, denied SI/HI/AVH. pt contracted for safety, pt reports he uses walker and cane at home to get around, due to his partial bilateral amputation, he has a shuffle gait, and was given a walker for safety. pt denied pain, skin check completed, pt with a skin on his right knee from the fall, he has an allyevyn drsg on it. Pt also has old healing wound and scattered scabs of his bilateral foot.VSS unremarkable. Med rec. completed, provider notified.Pt on 5mins for safety check. pt is allergic to Motrin. pt's belongs inventoried/secured. Hospitalist consulted for medical clearance. On admission, pt presents as irritable. Reports he is not depressed or suicidal. Stated he made comments when he was intoxicated and did not mean them. That being said did endorse a recent admission following a gabapentin overdose in October in [place]. Reports he has no interest in psychiatric services or medications as he does not take them consistently . Adamantly denied being depressed, psychosis, sleep disturbance. Regarding alcohol is very vague around the amount that he drinks and frequency too much , whenever I have the money . Reported not going for more than a few days at a time without drinking, but unsure how much each time. He does come across as a little concrete. Stated that he has no history of DTs or withdrawal seizures. Main stressor are living situation has relocated from [place] to [place] in September and stayed with his sister but that lasted less than 1 week and reports it was a legal incident and he has court date on 01/21/2025 for a battery charge and is currently wearing an ankle monitor. Does have some stress as the professional employer consultant for this is at the retirement he was most recently at in [place]. Reports his main goal is discharge when his 3 day notice expires and gets his ankle monitor requirement taken away, so he can go to [facility] . Did submitted 3 day notice and Kim warning reviewed. HOSPITAL COURSE Pt was admitted on a sect 12b. He was placed in 15 minutes checks. He presented as somewhat irritable and minimally cooperative as pt reported suicidal statements were in context of being intoxicated. He adamantly denied SI/HI. He did not present with s/s of psychosis or delusions. He was oriented to place, month, year and month. His memory/cognition although not formally tested appeared grossly intact in conversational testing. He was guarded about his mental health history. He did report hx of alcohol use. He declined medication to help decrease alcohol use. He reported he had been on prozac and depakote for mood. He denied hx of psychosis or delusions. He asked to be discharged as soon as possible. He signed release of information for outpatient case manager at retirement in [place] but declined giving permission to speak with his sister. He also gave consent for SW to contact his PO as he has an ankle monitor. He presented as future oriented in that he was asking team to contact his PO to make sure they were aware that he was in the hospital and his ankle monitor's battery is low. He also wanted to make sure outpatient case manager from retirement can continue working with him as he is planning to return to [place]. He was mostly in bed, minimally interactive with peers or staff. He did not engage in any meaningful way with providers or treatment team however, there is no indication of imminent harm to self or thers due to psychiatric symptoms. Status at Discharge Cognitive/behavioral status at discharge: Pt calmer, somewhat irritable. No SI/HI. No psychosis or delusions. Sleeping and eating well. No aggression towards self or others. Functional status at discharge: independent ambulation Overall status at discharge: patient is progressing back to baseline Time Spent with Patient Time attestation: Total time managing care of this patient today __35__ minutes. Time spent: Greater than 30 minutes Discharge Plan Discharge Anticipated Discharge Date/Time: 12/30/24 15:21 Patient Disposition: Half-Way Discharge Diagnosis: Alcohol Use Disorder Mood Disorder Referrals: Physician,None [Primary Care Provider, Medical] - 1 Week Discharge Medications: New atorvastatin 40 mg Tablet 40 mg PO DAILY Qty: 30 0RF isosorbide mononitrate 30 mg Tablet Extended Release 24 Hr 30 mg PO DAILY Qty: 30 0RF clopidogrel 75 mg Tablet 75 mg PO DAILY Qty: 30 0RF amitriptyline 25 mg Tablet 25 mg PO BEDTIME Qty: 30 0RF aspirin 81 mg Tablet,Chewable 81 mg PO DAILY Qty: 30 0RF divalproex 500 mg tablet,delayed release (DR/EC) 500 mg PO BID Qty: 60 0RF bumetanide 1 mg Tablet 0.5 mg PO DAILY Qty: 30 0RF fluoxetine 20 mg Capsule 20 mg PO DAILY Qty: 30 0RF Jardiance 10 mg Tablet 10 mg PO DAILY Qty: 30 0RF insulin glargine [Lantus Solostar U-100 Insulin] 100 unit/mL (3 mL) insulin pen 20 unit subcut BEDTIME Qty: 15 0RF thiamine mononitrate (vit B1) 100 mg Tablet 100 mg PO DAILY Qty: 30 0RF divalproex [Depakote] 250 mg tablet,delayed release (DR/EC) 250 mg PO BID Qty: 60 0RF Rx Instructions: in addition to depakote 500mg po BID for total dose of 750mg po BID Discontinued amitriptyline 25 mg PO BEDTIME aspirin 81 mg PO DIRECTED atorvastatin 40 mg PO DAILY bumetanide 0.5 mg PO DAILY clopidogrel 75 mg PO DAILY divalproex 750 mg PO BID empagliflozin 10 mg PO DAILY fluoxetine 20 mg PO DAILY insulin glargine 20 units subcut BEDTIME isosorbide mononitrate 30 mg PO DAILY Discharge Orders: Discharge Order (Routine); Ordered 12/30/24 Ordered By: Patience Gerard Diet: Diabetic diet Activity on Discharge: As tolerated Stand Alone Forms: Patient Portal Discharge page Print Language: Liberian Care Plan Goals: maintain mood NO SI/HI Health Concerns: follow up with PCP for DM care Plan of Treatment: take medications as prescribed go to nearest ED or call 911 in event of emergency Assessment: Pt with somewhat irritable affect. No SI/HI. No psychosis nor delusions. No aggression towards self or others. Sleeping and eating well.
== END 2024-12-30 17:30 | disposition home or self-care (01) | DRG 885 ==
PROVIDERS: Nurse Practitioner Psychiatric/Mental Health; Admitting Provider Psychiatry & Neurology Psychiatry; Visit Provider Psychiatry & Neurology Psychiatry
DX: F39 Unspecified mood [affective] disorder (principal); R45.851 Suicidal ideations; Z59.02 Unsheltered homelessness; F10.90 Alcohol use, unspecified, uncomplicated; E11.51 Type 2 diabetes mellitus with diabetic peripheral angiopathy without gangrene; I12.9 Hypertensive chronic kidney disease with stage 1 through stage 4 chronic kidney disease, or unspecified chronic kidney disease; N18.9 Chronic kidney disease, unspecified; E11.22 Type 2 diabetes mellitus with diabetic chronic kidney disease; E78.5 Hyperlipidemia, unspecified; I25.10 Atherosclerotic heart disease of native coronary artery without angina pectoris; Z79.4 Long term (current) use of insulin; Z79.02 Long term (current) use of antithrombotics/antiplatelets; Z79.82 Long term (current) use of aspirin; Z79.899 Other long term (current) drug therapy
CPT/HCPCS: 36415; 80053; 80061; 82607; 82746; 82947; 83036; 84439; 84443

== ENCOUNTER → 2024-12-25 20:43 | Outpatient (BNV) | payer OTHER, SELFPAY | PROVIDERS: Admitting Provider Psychiatry & Neurology Psychiatry; Visit Provider Student in an Organized Health Care Education/Training Program | DX: Z00.8 Encounter for other general examination (principal) | CPT/HCPCS: 99223 ==

== ENCOUNTER → 2024-12-25 20:43 | Outpatient (BNV) | payer OTHER, SELFPAY | PROVIDERS: Admitting Provider Psychiatry & Neurology Psychiatry; Visit Provider Psychiatry & Neurology Psychiatry | DX: F39 Unspecified mood [affective] disorder (principal); F10.90 Alcohol use, unspecified, uncomplicated; E11.9 Type 2 diabetes mellitus without complications; N28.9 Disorder of kidney and ureter, unspecified | CPT/HCPCS: 99222; 99231; 99232; 99239 ==